=== PATIENT | male | born 1960 | race Two or more races ===

== ENCOUNTER → 2025-01-04 | Outpatient (CLI) | payer MEDICARE, MEDICAID, SELFPAY ==
[2025-01-04 08:11] LABS: Collection Type, Urine Clean Catch
[2025-01-04 08:44] LABS: Bilirubin,Urine Negative (Negative); Blood,Urine Negative (Negative); Clarity,Urine Clear (Clear/Hazy); Color,Urine Yellow (Lt Yel-Yel); Glucose, Urine Negative (Negative); Ketones,Urine Negative (Negative); Leukocyte Esterase,Urine Negative (Negative); Nitrite,Urine Negative (Negative); PH,Urine 5.5 (5.0-7.0); Protein,Urine Negative (Neg - Trace); RBC,Urine 2 /hpf (0-3); Specific Gravity,Urine 1.029 (1.001-1.035); Squamous Epithelial Cell,Urine < 1 /hpf (0-5); Urobilinogen,Urine Negative mg/dL (0.0-1.0); WBC,Urine 1 /hpf (0-5)
[2025-01-04 08:46] LABS: Glucose Estimated Average 123 mg/dL (80-131); Hemoglobin A1C 5.9 % Hgb (4.8-6.0)
[2025-01-04 09:02] LABS: Alanine Aminotransferase 46 U/L (10-49); Albumin, Serum 4.7 gm/dL (3.4-4.8); Albumin/Globulin Ratio 1.9 (1.2-2.2); Alkaline Phosphatase 83 U/L (46-116); Anion Gap 9 (7-16); Aspartate Amino Transferase 37 U/L (0-34); BUN/Creatinine Ratio 20 Ratio (12-20); Bilirubin,Total 1.0 mg/dL (0.3-1.2); Blood Urea Nitrogen 18 mg/dL (9-23); Calcium 9.6 mg/dL (8.3-10.6); Calcium (Corrected) 9.6 mg/dL (8.5-10.1); Carbon Dioxide 27.5 mMol/L (20.0-31.0); Cardiac Risk Estimate 3.3 RATIO (4.0-6.7); Chloride 103 mMol/L (98-107); Cholesterol 174 mg/dL (132-200); Creatinine (Component) 0.9 mg/dL (0.6-1.3); Free T4 (Free Thyroxine) 1.23 ng/dL (0.89-1.76); Globulin 2.5 gm/dL (2.3-3.5); Glucose 133 mg/dL (74-106); HDL Cholesterol 52 mg/dL (40-60); LDL Cholesterol,Calculated 92 mg/dL (0-130); Osmolality,Calculated 281 (275-295); Potassium 4.5 mMol/L (3.4-5.1); Sodium 139 mMol/L (136-145); Thyroid Stimulating Hormone 2.50 uIU/mL (0.55-4.78); Total Protein 7.2 gm/dL (5.7-8.2); Triglycerides 150 mg/dL (30-150); eGFR > 60 See Note
[2025-01-04 09:07] LABS: Creatinine MALB Rnd Ur 189 mg/dL (30-125); Microalbumin Creat Ratio 2 mg/gCrea (<30); Microalbumin, Random Urine 4 mg/L (0-300)
== END | disposition home or self-care (01) ==
LOC: COPL 06:42
PROVIDERS: PCP Nurse Practitioner Family; Referring Provider Nurse Practitioner Family; Visit Provider Nurse Practitioner Family
DX: C16.2 Malignant neoplasm of body of stomach (principal); I10 Essential (primary) hypertension; E78.2 Mixed hyperlipidemia; Z79.899 Other long term (current) drug therapy; Z71.2 Person consulting for explanation of examination or test findings
CPT/HCPCS: 36415; 80053; 80061; 81001; 82043; 82570; 83036; 84439; 84443

== ENCOUNTER 2025-01-16 10:42 | Emergency (ER) | payer MEDICARE, MEDICAID, SELFPAY ==
[2025-01-16 11:09] VITALS: BP 169/98; PULSE 67; RESP 18; TEMP 36.9; O2SAT 97; BMI 43.0
--- NOTE | 2025-01-16 11:10 | XR_ITS ---
Examination: CT abdomen and pelvis without contrast. Coronal 3-D reconstructions. Sagittal 2-D reconstructions. Date and time of exam: January 16, 2025, 12:17 p.m., comparison 12/29/2023 INDICATIONS: Lower abdominal pain today, history abdominal hernia surgery CTDI: vol (mGy): 11.5 DLP: (mGycm): 772 Technique: Axial images of the abdomen have been obtained, 3 mm slice thickness Intravenous contrast material has not been administered. Low dose protocols were performed. One or more of the following dose reduction techniques were used; automated exposure control, adjustment of the mA and/or KV according to patient size, use of iterative reconstruction technique. Findings: No focal liver or splenic lesions No abdominal parenchymal laceration No free blood in the abdomen Lumbar vertebral bodies sacral segments bones of the pelvis and hips appear intact No gallstones No pancreatic or adrenal mass No renal or ureteral calculi, no hydronephrosis Left abdominal wall hernia defect, 17 mm, containing fat Right lower abdominal wall hernia defect, 6 cm containing small bowel, no incarcerated bowel Localized weakening of the entire anterior wall of the pelvis which contains bowel but no incarcerated bowel Bladder intact No prostatomegaly Advanced disc narrowing posteriorly L5-S1 IMPRESSION: Hernia defects as above, 2 of the defects contain bowel but no incarcerated bowel or bowel obstruction Abdominal aorta intact, no free blood in the abdomen Osseous structures intact
--- NOTE | 2025-01-16 11:10 | XR_ITS ---
Examination: Knee bilateral, 6 views Technique: Knee AP, lateral, oblique each knee total 6 views Date and time of exam: January 16, 2025, 1112 hours INDICATIONS: Ground-level fall with injury to both knees today. FINDINGS: No acute fracture involving either knee, no dislocation Advanced tricompartment osteoarthritis right knee, moderate tricompartment osteoarthritis left knee IMPRESSION: No acute fracture involving either knee
--- NOTE | 2025-01-16 11:10 | PD.EDRME ---
Rapid Medical Screening Exam E Arrival date/time: 01/16/25 10:42 64-year-old male with recent abdominal surgery presents to the emergency room today stating a ground-level fall today patient reports that he tripped and fell patient reports bilateral knee pain and abdominal trauma Chief Complaint: Fall Vital signs: Vital Signs Temperature 98.5 F 01/16/25 11:09 Pulse Rate 67 01/16/25 11:09 Respiratory Rate 18 01/16/25 11:09 Blood Pressure 169/98 H 01/16/25 11:09 Pulse Oximetry (%) 97 01/16/25 11:09 Oxygen Delivery Method Room Air 01/16/25 11:09
--- NOTE | 2025-01-16 13:11 | PD.EDFALL ---
ED Fall Injury RME/HPI General Chief Complaint: Fall Stated Complaint: FALL, ANDOMEN AND B/L KNEE PAIN Time Seen by Provider: 01/16/25 13:11 Arrival date/time: 01/16/25 10:42 64-year-old male with recent abdominal surgery presents to the emergency room today stating a ground-level fall today patient reports that he tripped and fell patient reports bilateral knee pain and abdominal trauma Limitations: no limitations RME / HPI RME / HPI Narrative: 01/16/25 10:42 64-year-old male with recent abdominal surgery presents to the emergency room today stating a ground-level fall today patient reports that he tripped and fell patient reports bilateral knee pain and abdominal trauma Related Data Home Medications ?Medication ?Instructions ?Recorded ?Confirmed multivitamin 1 tab PO QAM 07/14/17 10/28/22 tamsulosin 0.4 mg capsule 0.4 mg PO QDAY 09/06/17 10/28/22 albuterol sulfate 90 mcg/actuation 2 puff inhalation Q6H PRN Wheezing 03/22/19 10/28/22 aerosol inhaler (ProAir HFA) citalopram 20 mg tablet 20 mg PO QDAY 03/22/19 10/28/22 gabapentin 300 mg capsule 300 mg PO TID 03/22/19 10/28/22 cyclobenzaprine 5 mg tablet 5 mg PO TID 03/06/20 10/28/22 Held on 10/28/22. Instructions: Resume on 10/29/22. ibuprofen 600 mg tablet 600 mg PO TID PRN Pain 03/06/20 10/28/22 lisinopril 40 mg tablet 40 mg PO DAILY 03/06/20 10/28/22 meloxicam 15 mg tablet 15 mg PO QDAY 03/06/20 10/28/22 ipratropium bromide 21 mcg (0.03 2 spray intranasal QDAY PRN Sinus 10/28/22 %) nasal spray Symptoms Previous Rx's ?Medication ?Instructions ?Recorded albuterol sulfate 90 mcg/actuation See Rx Instructions inhalation 05/01/19 aerosol inhaler .COMPLEX PRN wheezing / cough / shortness of breath #6.7 grams benzonatate 100 mg capsule See Rx Instructions .Route 05/01/19 (Sunil Mckeon) .COMPLEX cough #30 caps inhalational spacing device #1 ea 05/01/19 (Aerochamber MV spacer) hydrocodone 5 mg-acetaminophen 325 1 tab PO Q6H #20 tabs 08/28/22 mg tablet Held on 10/28/22. Instructions: Resume on 10/29/22. tramadol 50 mg tablet 50 mg PO BID PRN pain #7 tabs 01/16/25 Allergies Allergy/AdvReac Type Severity Reaction Status Date / Time No Known Allergies Allergy Verified 01/16/25 10:46 Review of Systems Review of Systems Systems Reviewed: All systems reviewed, normal except as documented Constitutional Constitutional: Reports system reviewed and no additional complaints, except as documented, Denies fever(s) and Denies headache(s) Eyes Eyes: Reports system reviewed and no additional complaints, except as documented and Denies blurry vision ENT Ears, Nose, Mouth, and Throat: Reports system reviewed and no additional complaints, except as documented, Denies headache(s), Denies nasal congestion and Denies nasal discharge Cardiovascular Cardiovascular: Reports system reviewed and no additional complaints, except as documented, Denies chest pain and Denies dyspnea Respiratory Respiratory: Reports system reviewed and no additional complaints, except as documented, Denies chest congestion, Denies cough and Denies dyspnea Gastrointestinal Gastrointestinal: Reports system reviewed and no additional complaints, except as documented and Denies abdominal pain Musculoskeletal Musculoskeletal: Reports system reviewed and no additional complaints, except as documented and Reports arthralgias (Bilateral knee pain) Integumentary/Breasts Skin/Breast: Reports system reviewed and no additional complaints, except as documented, Denies rash and Reports wounds (Pain lower abdomen, bilateral knee pain) Neurologic Neurologic: Reports system reviewed and no additional complaints, except as documented, Reports as per HPI and Denies headache(s) Past Medical History Past Medical History NEUROLOGIC: Negative Neurological Disorders or Seizures CARDIAC: Positive Cardiac Disorders, Hypercholesterolemia and Hypertension; Negative Congestive Heart Failure RESPIRATORY: Positive Asthma; Negative Chronic Obstructive Pulmonary Disease (COPD) or Pneumonia GASTROINTESTINAL: Positive Gastrointestinal Disorders and Obesity GENITOURINARY: Positive Genitourinary Disorders, Renal Disease (kidney cancer) and Kidney Stones MUSCULOSKELETAL: Positive Musculoskeletal Disorders, Arthritis and Fractures ENDOCRINE: Negative Endocrine Disorders, Diabetes Mellitus Type 1 or Diabetes Mellitus Type 2 HEMATOLOGIC: Negative Blood Disorders or Sickle Cell Disease OTHER HISTORY: Positive Hospitalization (3.5 months ago for hernia repair), MRSA, Cancer (kidney cancer, lung cancer) and Lung Cancer; Negative Autoimmune Disease, Shingles, Falls, Blood Transfusions, Blood Transfusion Reaction, Anesthesia Reactions, Chemotherapy, Radiation Therapy, Chicken Pox, Measles or Mumps Family History FAMILY HISTORY: Positive Family Cardiac Disorders, Family Gastrointestinal Problems, Family Cancer (brother colon and liver cancer, father unknown cancer) and Family Surgery; Negative Family Psychiatric Problems, Family Respiratory Disorders or Family Anesthesia Reaction Surgical History SURGICAL: Positive Abdominal Surgery, Gastric Bypass Surgery and Nephrectomy (25% of left kidney removede); Negative Cardiac Surgery Social History SMOKING STATUS: Never smoker ED Exam General Limitations: Present no limitations General appearance: Present alert and in no apparent distress Head Head exam: Present atraumatic, normocephalic and normal inspection Eye Eye exam: Present normal appearance, PERRL and EOMI; Absent conjunctival injection ENT ENT exam: Present normal exam, normal oropharynx and mucous membranes moist Neck Neck exam: Present normal inspection, full ROM and trachea midline Chest Chest inspection: Present normal inspection and symmetric chest wall rise Respiratory Respiratory exam: Present normal lung sounds bilaterally Cardiovascular Cardiovascular exam: Present regular rate, normal rhythm and normal heart sounds Abdominal Exam Abdominal exam: Present soft, normal bowel sounds and other (Sutures in case abdomen); Absent distention, tenderness, guarding, rebound or rigidity Extremities Exam Extremities exam: Present normal inspection, full ROM, tenderness, normal capillary refill and joint swelling (Joint pain bilateral knees) Back Exam Back exam: Present normal inspection and full ROM Neurological Exam Neurological exam: Present alert, oriented X3 and CN II-XII intact Psychiatric Psychiatric exam: Present normal affect and normal mood Skin Skin exam: Present warm, dry and other (Sutures in place abdomen) Course Quality Measures none Orders Category Date Time Status jermain wrap [Splint / Immobilizer] STAT Care 01/16/25 13:[address] abdomen pelvis wo con Stat Exams 01/16/25 11:10 Completed XR knee BI 3V Stat Exams 01/16/25 11:10 Completed Vital Signs Vital signs: Vital Signs Temperature 98.5 F 01/16/25 11:09 Pulse Rate 67 01/16/25 11:09 Respiratory Rate 18 01/16/25 11:09 Blood Pressure 169/98 H 01/16/25 11:09 Pulse Oximetry (%) 97 01/16/25 11:09 Oxygen Delivery Method Room Air 01/16/25 11:09 O2 saturation 97% room air within normal limits Fall MDM Narrative MDM Narrative:: 64-year-old male with recent abdominal surgery presents to the emergency room today stating a ground-level fall today patient reports that he tripped and fell patient reports bilateral knee pain and abdominal trauma On exam patient well-appearing patient does not appear look toxic no acute distress Imaging of the abdomen obtained no acute emergent findings noted X-ray of bilateral knees obtained no acute fractures noted Jermain wrap applied to the right knee Patient discharged with pain medication Patient reports he has a follow-up with the cancer treatment center at this time and will go to the appointment Patient thankful for care Patient discharged home in no distress to follow-up with primary care doctor in the next 24 to 48 hours and for any worsening symptoms to return to the ER immediately Patient data External records reviewed:: [facility] previous records Clinical information provided by:: patient Social determinants that could affect healthcare access:: none Patient has the following chronic illnesses:: None How is presenting disease/condition affected by chronic disease/condition?: exacerbated by Evaluation data The following diagnostics were reviewed and interpreted by me:: radiology exam(s) Lab and/or radiology exams considered but not ordered:: Radiology obtained Interpretation Summary: Rx given Medications / Prescriptions Medications or Prescriptions considered but not ordered:: Rx given Medication administrations:: Given Consultations Consultation(s) initiated? (list below): No Diagnosis Fall Differential Diagnosis: other (Trip and fall, abdominal wall pain, abrasions bilateral knees, knee pain) Most likely diagnosis given after review of the tests above:: Reviewed by me Admission Indicated Admission indicated?: not indicated Admission Request Was there a request for admission?: No Disposition Plan Disposition Plan: Discharge Discharge Attestation Discharge Attestation: The patient and all family members were given an opportunity to ask questions and understood the discharge instructions. Discharge instructions specifically effects, indications for sooner follow up or return to the emergency department, and the expected course of current diagnosis. Patient condition: Stable Discharge Plan Plan Patient Disposition: HOME (Self Care) Discharge Disposition comment: Stable Prescriptions/Referrals Prescriptions/Med Rec: New tramadol 50 mg tablet 50 mg PO BID PRN (Reason: pain) Qty: 7 0RF No Action tamsulosin 0.4 mg capsule,extended release 24hr 0.4 mg PO QDAY multivitamin tablet 1 tab PO QAM (DME) Aerochamber MV spacer See Dose Instructions .ROUTE .MEDSUPPLY Qty: 1 0RF Dose Instruction: As directed Rx Instructions: As directed albuterol sulfate 90 mcg/actuation HFA aerosol inhaler See Rx Instructions INH .COMPLEX PRN (Reason: wheezing / cough / shortness of breath) Qty: 6.7 0RF Rx Instructions: INH PRN; 1-2 puffs Q4-6 hours prn. administer with spacer benzonatate [Tessalon Perles] 100 mg capsule See Rx Instructions .Route .COMPLEX Qty: 30 0RF Rx Instructions: 1-2 cap(s) PO Q8 hours prn cough gabapentin 300 mg Capsule 300 mg PO TID citalopram 20 mg Tablet 20 mg PO QDAY albuterol sulfate [ProAir HFA] 90 mcg/actuation Hfa Aerosol Inhaler 2 puff INHALATION Q6H PRN (Reason: Wheezing) meloxicam 15 mg Tablet 15 mg PO QDAY ibuprofen 600 mg Tablet 600 mg PO TID PRN (Reason: Pain) lisinopril 40 mg Tablet 40 mg PO DAILY cyclobenzaprine 5 mg Tablet 5 mg PO TID hydrocodone-acetaminophen 5-325 mg tablet 1 tab PO Q6H MDD 4 Qty: 20 0RF ipratropium bromide 0.03 % spray,non-aerosol 2 spray intranasal QDAY PRN (Reason: Sinus Symptoms) Referrals: Chantal García TRAFFIC ASSISTANT [Primary Care Provider] - In 1 week Problem List Clinical Impression: Abdominal wall pain, Acute bilateral knee pain, Fall Patient/Caregiver Discharge Instructions Education Materials: Abdominal Pain Additional Instructions: Please follow up with your primary care doctor in the next 24-48hrs for any worsening symptoms return here immediately Print Language: Mosotho Stand Alone Forms: Radha Award Info., Patient Portal Info Letter PA/MEAT MARKET MANAGER Supervising Physician PA/MEAT MARKET MANAGER Supervising Physician: Dr. edwards
== END 2025-01-16 13:17 | disposition home or self-care (01) ==
PROVIDERS: Emergency Provider Emergency Medicine; PCP Nurse Practitioner Family
DX: M25.562 Pain in left knee (principal); M25.561 Pain in right knee; R10.9 Unspecified abdominal pain
CPT/HCPCS: 73562; 74176; 99284

== ENCOUNTER 2025-01-16 13:34 | Outpatient (RCR) | payer MEDICARE, MEDICAID, SELFPAY ==
--- NOTE | 2025-01-16 14:52 | CTCFLWUP_ITS ---
[facility] [address] [place], [place] [address] FOLLOW-UP NOTE Date: 01/16/2025 MR#: [id number] Name: SELMA MUNOZ : 1960 Dx: C64.2 Malignant neoplasm of left kidney, except renal pelvis Identification. 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 Patient underwent left upper pole heminephrectomy at [facility] performed by Dr. Luis July 03, 2017. Margins uninvolved and no adjuvant therapy was felt to be needed and received. Over the years patient has a chronic pain with imaging study showing significant bone damage thought to be degenerative disease or other benign causes of stenosis and degenerative changes.. Also dealing with chronic pain as well as incarcerated recurrent incisional hernia for which he has had recurrent incisional hernia with multiple surgeries. Patient was recently being followed in [place] which reportedly revealed a 6 mm lung nodule left lower lobe. No recent test had been done. According to patient. As Isee patient today he appears generally uncomfortable. Dealing with constipation issues chronic pain and fear of cancer recurrence. A#1. History of renal cell CA stage I clear-cell status post left heminephrectomy performed 2018 at [facility]. A#2. Thus far no sign of recurrence though small left lung nodule reportedly seen with imaging studies done in [place] in the past. Will repeat CT scan of the chest before next visit. A#3. Incarcerated recurrent incisional hernia, multiple prior surgeries being followed by general surgeon in [place]. A#4. Chronic constipation bowel irregularities, along with generalized pain. Primary care provider providing meds. A#5. I will see him back for follow-up in [address] scan of the chest with contrast. Cc: Chantal García NP Electronically signed by: Sorin Govea M.D. 01/16/2025 2:49 PM
== END 2025-02-01 23:59 | disposition home or self-care (01) ==
LOC: SCTC 13:34
PROVIDERS: PCP Nurse Practitioner Family; Referring Provider Nurse Practitioner Family; Visit Provider Radiology Therapeutic Radiology
DX: Z08 Encounter for follow-up examination after completed treatment for malignant neoplasm (principal); Z85.528 Personal history of other malignant neoplasm of kidney; Z90.5 Acquired absence of kidney; R91.1 Solitary pulmonary nodule; K43.0 Incisional hernia with obstruction, without gangrene; K59.09 Other constipation
CPT/HCPCS: 99213; G0463

== ENCOUNTER → 2025-02-19 | Outpatient (CLI) | payer MEDICARE, MEDICAID, SELFPAY ==
[2025-02-19 11:11] LABS: Alanine Aminotransferase 36 U/L (10-49); Albumin, Serum 4.9 gm/dL (3.4-4.8); Albumin/Globulin Ratio 2.3 (1.2-2.2); Alkaline Phosphatase 77 U/L (46-116); Anion Gap 9 (7-16); Aspartate Amino Transferase 30 U/L (0-34); BUN/Creatinine Ratio 16 Ratio (12-20); Bilirubin,Total 0.8 mg/dL (0.3-1.2); Blood Urea Nitrogen 16 mg/dL (9-23); Calcium 9.4 mg/dL (8.3-10.6); Calcium (Corrected) 9.4 mg/dL (8.5-10.1); Carbon Dioxide 28.7 mMol/L (20.0-31.0); Chloride 103 mMol/L (98-107); Creatinine (Component) 1.0 mg/dL (0.6-1.3); Globulin 2.1 gm/dL (2.3-3.5); Glucose 134 mg/dL (74-106); Osmolality,Calculated 284 (275-295); Potassium 4.6 mMol/L (3.4-5.1); Sodium 141 mMol/L (136-145); Total Protein 7.0 gm/dL (5.7-8.2); eGFR > 60 See Note
[2025-02-19 11:18] LABS: Basophils # (Auto) 0.0 Thou/mm3 (0.0-0.2); Basophils % (Auto) 1 % (0-2.5); Eosinophils # (Auto) 0.2 Thou/mm3 (0.0-0.5); Eosinophils % (Auto) 3 % (0-10); Hematocrit 41.1 % (41.0-53.0); Hemoglobin 13.8 g/dL (13.5-16.0); Immature Granulocytes Auto 0.03 Thou/mm3 (0.00-0.00); Lymphocytes # (Auto) 3.1 Thou/mm3 (1.0-4.8); Lymphocytes % (Auto) 46 % (10-50); Mean Corpuscular HGB Conc 33.6 g/dl (31.0-37.0); Mean Corpuscular Hemoglobin 31.6 pg (25.0-35.0); Mean Corpuscular Volume 94 fL (80-100); Monocytes # (Auto) 0.4 Thou/mm3 (0.0-0.8); Monocytes % (Auto) 7 % (0-12); Neutrophils # (Auto) 2.9 Thou/mm3 (1.8-7.7); Neutrophils % (Auto) 43 % (37-80); Nucleated Red Blood Cell # 0.00 Thou/mm3 (0.00-0.00); Nucleated Red Blood Cell % 0 /100 WBC (0); Platelet Count 243 Thou/mm3 (140-440); RDW Standard Deviation 43.3 fL (35.1-43.9); Red Blood Count 4.37 Miln/mm3 (4.50-5.90); White Blood Count 6.7 Thou/mm3 (3.8-10.6)
== END | disposition home or self-care (01) ==
LOC: SCTO 09:25
PROVIDERS: PCP Nurse Practitioner Family; Referring Provider Radiology Therapeutic Radiology; Visit Provider Radiology Therapeutic Radiology
DX: C64.2 Malignant neoplasm of left kidney, except renal pelvis (principal)
CPT/HCPCS: 36415; 80053; 85025

== ENCOUNTER → 2025-02-20 | Outpatient (CLI) | payer MEDICARE, MEDICAID, SELFPAY ==
--- NOTE | 2025-02-20 15:00 | XR_ITS ---
Examination: CT chest with intravenous contrast 2-D sagittal and coronal reconstructions Exam date and time: February 20, 2025, 1457 hours INDICATIONS: Diagnosis iron deficiency anemia, 6 mm pulmonary nodule left lower lobe on CT chest July 07, 2022 CTDI:vol (mGy) 23.9 DLP: (mGycm) 955 Technique: Multiple axial sections of the thorax have been obtained. Sections have been obtained, 3 mm slice thickness. Mediastinal and lung density settings have been obtained. Intravenous contrast administered, 60 cc [id number]-370. 2-D sagittal, coronal images obtained. Low dose protocols were performed. One or more of the following dose reduction techniques were used; automated exposure control, adjustment of the mA and/or KV according to patient size, use of iterative reconstruction technique. Findings: No thoracic aortic aneurysm dilatation or dissection No pulmonary artery filling defects Heavy calcification left anterior descending coronary artery No paratracheal tracheobronchial or bronchopulmonary adenopathy Nodule in the left lower lobe currently measures 9 mm compared to 6 mm on the prior study No visualized liver or splenic lesion no gallstones Partial left nephrectomy IMPRESSION: Enlarging nodule left lower lobe, recommend continued 6-month follow-up CT chest without contrast
== END | disposition home or self-care (01) ==
PROVIDERS: PCP Nurse Practitioner Family; Referring Provider Radiology Therapeutic Radiology; Visit Provider Radiology Therapeutic Radiology
DX: R91.1 Solitary pulmonary nodule (principal); C64.2 Malignant neoplasm of left kidney, except renal pelvis
CPT/HCPCS: 71260; A4649; Q9967

== ENCOUNTER 2025-02-22 07:52 | Outpatient (AMB) | payer MEDICARE, MEDICAID, SELFPAY ==
--- NOTE | 2025-02-22 08:11 | ORTHONT_ITS ---
Vital signs 02/22/25 08:12 Height 1.7 m Height Method Measured Weight 114.986 kg Weight Measurement Method Standing Scale BMI 39.7 BP 169/95 H Blood Pressure Source Automatic Cuff Blood Pressure Location Left Upper Arm Position Sitting Respiration 18 Pulse 80 Pulse Source Monitor Temp 98.3 F Temp Source Temporal Artery Scan Pulse Oximetry (%) 96 Oxygen Delivery Method Room Air Med/Allergies Allergies & Medications Allergies No Known Allergies Allergy (Verified 02/22/25 08:13) Medication Reconciliation multivitamin 1 tab PO QAM 07/14/17 [History Confirmed 02/22/25] tamsulosin 0.4 mg capsule 0.4 mg PO QDAY 09/06/17 [History Confirmed 02/22/25] albuterol sulfate 90 mcg/actuation aerosol inhaler (ProAir HFA) 2 puff inhalation Q6H PRN Wheezing 03/22/19 [History Confirmed 02/22/25] citalopram 20 mg tablet 20 mg PO QDAY 03/22/19 [History Confirmed 02/22/25] gabapentin 300 mg capsule 300 mg PO TID 03/22/19 [History Confirmed 02/22/25] albuterol sulfate 90 mcg/actuation aerosol inhaler See Rx Instructions inhalation .COMPLEX PRN wheezing / cough / shortness of breath #6.7 grams 05/01/19 [Rx Confirmed 02/22/25] benzonatate 100 mg capsule (Tessalon Mike) See Rx Instructions .Route .COMPLEX cough #30 caps 05/01/19 [Rx Confirmed 02/22/25] inhalational spacing device (Aerochamber MV spacer) #1 ea 05/01/19 [Rx Confirmed 02/22/25] cyclobenzaprine 5 mg tablet 5 mg PO TID 03/06/20 [History Confirmed 02/22/25] Held on 10/28/22. Instructions: Resume on 10/29/22. ibuprofen 600 mg tablet 600 mg PO TID PRN Pain 03/06/20 [History Confirmed 02/22/25] lisinopril 40 mg tablet 40 mg PO DAILY 03/06/20 [History Confirmed 02/22/25] meloxicam 15 mg tablet 15 mg PO QDAY 03/06/20 [History Confirmed 02/22/25] hydrocodone 5 mg-acetaminophen 325 mg tablet 1 tab PO Q6H #20 tabs 08/28/22 [Rx Confirmed 02/22/25] Held on 10/28/22. Instructions: Resume on 10/29/22. ipratropium bromide 21 mcg (0.03 %) nasal spray 2 spray intranasal QDAY PRN Sinus Symptoms 10/28/22 [History Confirmed 02/22/25] tramadol 50 mg tablet 50 mg PO BID PRN pain #7 tabs 01/16/25 [Rx Confirmed 02/22/25] Exam Exam Patient is in no acute distress and is cooperative with the examination today. Breathing is nonlabored. In no respiratory distress. Bilateral extremities were evaluated and demonstrates sensation intact to light touch. Palpable pedal pu lses are present. No significant edema is present. Bilateral hips were examined. The patient has no pain with log roll of the hips. Internal rotation to 30 degrees and external rotation to 30 degrees is painless. Negative FADIR. The left knee was examined. The left knee is in varus alignment. Range of motion from 0-115 degrees. Knee is stable to varus and valgus as well as AP translation with <5mm. Patient has a negative McMurrays. There is no pain with patellofemoral compression and no crepitus noted. The knee is tender to palpation medially. The right knee was also examined. The right knee is in varus alignment. Range of motion from 0-120 degrees. Knee is stable to varus and valgus as well as AP translation with <5mm. Patient has a negative McMurrays. There is no pain with patellofemoral compression and no crepitus noted. The knee is tender to palpation medially. Right knee x-rays demonstrates ojmp-[id number] arthritis. There are nonweightbearing films. There is joint space narrowing laterally and osteophytes Assessment and Plan Problem List (1) Acute bilateral knee pain: Status: Acute Plan: ASSESSMENT AND PLAN 1. Bilateral knee pain: The patient reports bilateral knee pain, with the right knee being worse, which started about a month and a half ago after a fall. He has had two arthroscopic surgeries and one open surgery on the right knee in 1985. The pain is severe and associated with swelling. He is currently taking codeine for pain management. A standing x-ray of both knees will be conducted today to assess the extent of the damage. A standing x-ray of both knees will be performed today. Depending on the x-ray results, treatment may include injections and anti-inflammatory medications. Approval for the injections will be sought from his insurance provider during the next visit. If these interventions are ineffective, surgical intervention may be necessary. (2) Arthritis of knee, right: Status: Acute Office Procedures GNS Level of Care Nursing/Assessment Patient Status: Initial/New Patient Nursing Assessment/Reassesment: Medication Reconciliation, Update PMH in EMR and Vital Signs Coordination of Care: Complex Care and Chronic Disease 1-5, Education Complex Pt/Fam, Consent,records obtained, informed consent, Lab and Imaging orders, Results/Orders obtained and Staff clarify orders New Patient Charge New Patient Point Assignment: 1109 New Patient Point Charge: STAFFING ANALYST Level 3 ([id number]) MA Intake Visit Data Collection New Patient or Established: New Patient (never been to [facility]) Reason for Visit:: BILATERAL KNEE PAIN Seen by Clinical Staff ONLY (RN/MA): No Granite Worker Required: No PCP or OBGYN visit in last 3 months: Yes Hx Now: No Do You Feel Safe at Home: Yes Authorities Contacted: N/A Questionairres Past Medical History Past Medical History Have you ever been diagnosed with any of the following: Neurological Problems Seizures: No Cardiology Problems Hypercholesterolemia: Yes Congestive Heart Failure: No Hypertension: Yes Respiratory Problems Chronic Obstructive Pulmonary Disease (COPD): No Asthma: Yes Pneumonia: No Stomache/Intestinal Problems Obesity: Yes Genital/Urinary Problems Renal Disease: Yes (kidney cancer) Kidney Stones: Yes Musculoskeletal Problems Arthritis: Yes Fractures: Yes Endocrine Problems Diabetes Mellitus Type 1: No Diabetes Mellitus Type 2: No Blood Problems Sickle Cell Disease: No Other Problems Hospitalization: Yes (3.5 months ago for hernia repair) Shingles: No Falls: No Blood Transfusions: No Blood Transfusion Reaction: No Anesthesia Reactions: No Chemotherapy: No Radiation Therapy: No MRSA: Yes Chicken Pox: No Measles: No Mumps: No Cancer: Yes (kidney cancer, lung cancer) Lung Cancer: Yes Subjective Visit Visit for: new patient and knee Immunization / Flu Flu Vaccine in the Last 12 Months: Yes Flu Vaccine Exclusion Criteria: Already Received History of Present Illness Chief complaint: BILATERAL KNEE PAIN Date of injury / onset of symptoms: 1 MONTH HISTORY OF PRESENT ILLNESS Reid James, have obtained verbal consent from the patient, to be recorded during this encounter which may include, but not limited to, medical history, examination, treatment plans, and relevant health information.? Patient was informed that recording will be read and reviewed by myself before inclusion in the medical chart. The patient presents today with bilateral knee pain, worse in the right knee, which started about a month and a half ago following a fall. He states the most recent x-rays were completed here at [facility]. He has had one prior right knee surgery. He has not tried injections, physical therapy, or anti-inflammatory medications but is currently taking a pain medication. He reports that the pain in his left knee has subsided, but he experiences swelling and pain in his right knee. He describes the pain as being located internally and at the corner of the knee. He has undergone two surgeries on his right knee, with the most recent one involving a full incision in 1985. During this procedure, a wire was inserted into his knee, which was later removed. He recalls an incident where he tripped over a mat with rolled towels underneath it while paying his electric bill, causing him to fall and injure his knee. He also mentions a previous hernia surgery and expresses concern about potential damage to his stomach during the fall. He reports experiencing tenderness in his knee, which he did not previously have. He is currently taking codeine for pain management. He reports that his knee pain has been present for more than a month and a half but has significantly worsened in the past month and a half. He used to be able to walk at the mall, but now he needs to sit down after walking short distances due to the pain. He lives alone at home. PAST SURGICAL HISTORY: Right knee surgery (1985) Hernia surgery (date not specified) Personal History Occupation: RETIRED Red flag PMH: none BMI Counceling provided: Yes Pain Pain level (0-10): 8 Pain location: inside (medial) Pain quality: aching, burning and tingling Pain timing: increases with activity and stairs Associated signs & symptoms: weakness Ambulatory data Ambulatory device: none Walking distance (minutes): 5 Treatments Number of previous injections: 0 Improvement with previous injections: No Number of Physical Therapy sessions: 0 Improvement with PT: No Improvement with NSAIDS: no Review of Systems Review of Systems: All systems negative unless otherwise noted in HPI.
[2025-02-22 08:12] VITALS: BP 169/95; PULSE 80; RESP 18; TEMP 36.8; O2SAT 96; BMI 39.7
--- NOTE | 2025-02-22 08:18 | XR_ITS ---
EXAMINATION: Bilateral knees 2 views Right lateral knee left lateral knee 2 views Bilateral axial knee single view TECHNIQUE: Bilateral AP knees standing single view, bilateral PA knees standing single view flexion Standing right lateral knee left lateral knee 2 views Bilateral axial knee single view total 5 views Date and time: February 22, 2025, 0830 hours INDICATIONS: Right knee surgery times 05/23/1985, patient slipped and fell 6 weeks ago with knee pain FINDINGS: Severe narrowing medial lateral joint spaces right knee Advanced osteoarthritis right patellofemoral joint 18 mm ossified body posterior right knee Moderate to advanced narrowing medial joint space left knee Moderate osteoarthritis left patellofemoral joint IMPRESSION: Severe right knee tricompartment osteoarthritis
== END 2025-02-22 08:29 | disposition home or self-care (01) ==
LOC: HODSRG 07:52
PROVIDERS: PCP Nurse Practitioner Family; Referring Provider Nurse Practitioner Family; Supervising Provider Orthopaedic Surgery Adult Reconstructive Orthopaedic Surgery; Visit Provider Orthopaedic Surgery Adult Reconstructive Orthopaedic Surgery
DX: M25.562 Pain in left knee (principal); M25.561 Pain in right knee; M17.11 Unilateral primary osteoarthritis, right knee; I10 Essential (primary) hypertension; E66.9 Obesity, unspecified; Z68.39 Body mass index [BMI] 39.0-39.9, adult
CPT/HCPCS: 73564; 99203; G0463

== ENCOUNTER 2025-03-12 13:54 | Outpatient (AMB) | payer MEDICARE, MEDICAID, SELFPAY ==
--- NOTE | 2025-03-12 14:18 | ORTHONT_ITS ---
Vital signs 03/12/25 14:19 Height 1.7 m Height Method Measured Weight 116.148 kg Weight Measurement Method Standing Scale BMI 40.1 BP 120/78 Blood Pressure Source Automatic Cuff Blood Pressure Location Left Upper Arm Position Sitting Respiration 18 Pulse 73 Pulse Source Monitor Temp 97.7 F Temp Source Temporal Artery Scan Pulse Oximetry (%) 98 Oxygen Delivery Method Room Air Med/Allergies Allergies & Medications Allergies No Known Allergies Allergy (Verified 03/12/25 14:20) Medication Reconciliation multivitamin 1 tab PO QAM 07/14/17 [History Confirmed 03/12/25] tamsulosin 0.4 mg capsule 0.4 mg PO QDAY 09/06/17 [History Confirmed 03/12/25] albuterol sulfate 90 mcg/actuation aerosol inhaler (ProAir HFA) 2 puff inhalation Q6H PRN Wheezing 03/22/19 [History Confirmed 03/12/25] citalopram 20 mg tablet 20 mg PO QDAY 03/22/19 [History Confirmed 03/12/25] gabapentin 300 mg capsule 300 mg PO TID 03/22/19 [History Confirmed 03/12/25] albuterol sulfate 90 mcg/actuation aerosol inhaler See Rx Instructions inhalation .COMPLEX PRN wheezing / cough / shortness of breath #6.7 grams 05/01/19 [Rx Confirmed 03/12/25] benzonatate 100 mg capsule (Tessalon Mike) See Rx Instructions .Route .COMPLEX cough #30 caps 05/01/19 [Rx Confirmed 03/12/25] inhalational spacing device (Aerochamber MV spacer) #1 ea 05/01/19 [Rx Confirmed 03/12/25] cyclobenzaprine 5 mg tablet 5 mg PO TID 03/06/20 [History Confirmed 03/12/25] Held on 10/28/22. Instructions: Resume on 10/29/22. ibuprofen 600 mg tablet 600 mg PO TID PRN Pain 03/06/20 [History Confirmed 03/12/25] lisinopril 40 mg tablet 40 mg PO DAILY 03/06/20 [History Confirmed 03/12/25] meloxicam 15 mg tablet 15 mg PO QDAY 03/06/20 [History Confirmed 03/12/25] hydrocodone 5 mg-acetaminophen 325 mg tablet 1 tab PO Q6H #20 tabs 08/28/22 [Rx Confirmed 03/12/25] Held on 10/28/22. Instructions: Resume on 10/29/22. ipratropium bromide 21 mcg (0.03 %) nasal spray 2 spray intranasal QDAY PRN Sinus Symptoms 10/28/22 [History Confirmed 03/12/25] tramadol 50 mg tablet 50 mg PO BID PRN pain #7 tabs 01/16/25 [Rx Confirmed 03/12/25] Exam Exam Patient is in no acute distress and is cooperative with the examination today. Breathing is nonlabored. In no respiratory distress. Bilateral extremities were evaluated and demonstrates sensation intact to light touch. Palpable pedal puls es are present. No significant edema is present. Bilateral hips were examined. The patient has no pain with log roll of the hips. Internal rotation to 30 degrees and external rotation to 30 degrees is painless. Negative FADIR. The left knee was examined. The left knee is in varus alignment. Range of motion from 0-115 degrees. Knee is stable to varus and valgus as well as AP translation with <5mm. Patient has a negative McMurrays. There is no pain with patellofemoral compression and no crepitus noted. The knee is tender to palpation medially. The right knee was also examined. The right knee is in varus alignment. Range of motion from 0-120 degrees. Knee is stable to varus and valgus as well as AP translation with <5mm. Patient has a negative McMurrays. There is no pain with patellofemoral compression and no crepitus noted. The knee is tender to palpation medially. Right knee x-rays demonstrates [id number] arthritis. There is joint space narrowing laterally and osteophytes Assessment and Plan Problem List (1) Acute bilateral knee pain: Status: Acute Plan: ASSESSMENT AND PLAN 1. Bilateral knee pain: The patient reports bilateral knee pain, with the right knee being worse, which started about a month and a half ago after a fall. He has had two arthroscopic surgeries and one open surgery on the right knee in 1985. The pain is severe and associated with swelling. He is currently taking codeine for pain management. The x-rays demonstrate ljhx-na-nque arthritis of the right knee. He has failed conservative treatment and the pain is miserable. He has tried anti- inflammatories. We discussed injections as well as physical therapy versus surgery. Given the severity of the arthritis I do think that a total knee replacement is a reasonable option for the right side The nature and purpose of the total knee replacement, alternative method(s) of treatment, the material risks involved, and the possibility of complications were fully explained to the patient. The patient does NOT have any of the following contraindications to TKA: - Active infection of the knee joint, OR - Active systemic bacteremia, OR - Active skin infection or open wound at surgical site, OR - Neuropathic arthritis, OR - Severe, rapidly progressive neurological disease, OR - Severe medical condition that makes risks of surgery outweigh the potential benefit The patient was told the most common risks and complications associated with a total knee replacement include, but are not limited to: blood clots in the leg, fatal pulmonary embolism, dislocation of the prosthesis, intraoperative and postoperative fractures of the femur or tibia, infection, failure of the prosthesis or grafting materials, complications from anesthesia, reactions to blood transfusions, postoperative leg length inequality, instability of the knee replacement, nerve damage or injury, vascular injury, delayed wound healing, infection, other injury or even . In addition, there are risks associated with anesthesia given during this operation. Also, the patient was told that after undergoing a total knee replacement there may still be persistent pain or disability. The patient was informed that the success of this operation in part depends upon the mechanical devices which are going to be implanted and that these devices can fail or malfunction, and may need to be repaired or replaced and there are no guarantees as to the longevity of this device or its parts and that it or its parts could fail prematurely. The patient was also notified that during the course of surgery, there may be a need to use bone graft from donors, and that any bone graft used will be carefully screened for communicable diseases, including AIDS, hepatitis, Zen-Creutzfeldt, or other diseases, but despite the screening procedures, there is a small chance that they could contract one of these diseases. Finally, the patient was asked to follow completely and fully with all advice and recommended treatments, and that recovery and ultimate outcome are affected by their compliance with recommended treatment. We discussed the risks, benefits and treatment alternatives, and the patient is interested in proceeding with surgery. We will try to set this up as expeditiously as possible. (2) Arthritis of knee, right: Status: Acute Office Procedures GNS Level of Care Nursing/Assessment Patient Status: Established Patient Nursing Assessment/Reassesment: Medication Reconciliation, Update PMH in EMR and Vital Signs Coordination of Care: Complex Care and Chronic Disease 1-5, Education Complex Pt/Fam, Consent,records obtained, informed consent, Results/Orders obtained and Staff clarify orders Established Patient Charge Established Patient Point Assignment: 95 Established Patient Point Charge: EP Level 3 (80-115) MA Intake Visit Data Collection New Patient or Established: Established Patient (seen at [facility] within 3 years) Reason for Visit:: XRAY RESULTS/POSSIBLE INJECTION Seen by Clinical Staff ONLY (RN/MA): No Scrub Nurse Required: No PCP or OBGYN visit in last 3 months: Yes Hx Now: No Do You Feel Safe at Home: Yes Authorities Contacted: N/A Questionairres Past Medical History Past Medical History Have you ever been diagnosed with any of the following: Neurological Problems Seizures: No Cardiology Problems Hypercholesterolemia: Yes Congestive Heart Failure: No Hypertension: Yes Respiratory Problems Chronic Obstructive Pulmonary Disease (COPD): No Asthma: Yes Pneumonia: No Stomache/Intestinal Problems Obesity: Yes Genital/Urinary Problems Renal Disease: Yes (kidney cancer) Kidney Stones: Yes Musculoskeletal Problems Arthritis: Yes Fractures: Yes Endocrine Problems Diabetes Mellitus Type 1: No Diabetes Mellitus Type 2: No Blood Problems Sickle Cell Disease: No Other Problems Hospitalization: Yes (3.5 months ago for hernia repair) Shingles: No Falls: No Blood Transfusions: No Blood Transfusion Reaction: No Anesthesia Reactions: No Chemotherapy: No Radiation Therapy: No MRSA: Yes Chicken Pox: No Measles: No Mumps: No Cancer: Yes (kidney cancer, lung cancer) Lung Cancer: Yes Subjective Visit Visit for: follow up visit and knee Immunization / Flu Flu Vaccine in the Last 12 Months: Yes Flu Vaccine Exclusion Criteria: Already Received History of Present Illness Chief complaint: XRAY RESULTS/POSSIBLE INJECTION Date of injury / onset of symptoms: 1 MONTH HISTORY OF PRESENT ILLNESS IReid, have obtained verbal consent from the patient, to be recorded during this encounter which may include, but not limited to, medical history, examination, treatment plans, and relevant health information.? Patient was informed that recording will be read and reviewed by myself before inclusion in the medical chart. The patient presents today with bilateral knee pain, worse in the right knee, wh ich started about a month and a half ago following a fall. He has had one prior right knee surgery. He has not tried injections, physical therapy, or anti-inflammatory medications but is currently taking a pain medication. He reports that the pain in his left knee has subsided, but he experiences swelling and pain in his right knee. He describes the pain as being located internally and at the corner of the knee. He has undergone two surgeries on his right knee, with the most recent one involving a full incision in 1985. During this procedure, a wire was inserted into his knee, which was later removed. He recalls an incident where he tripped over a mat with rolled towels underneath it while paying his electric bill, causing him to fall and injure his knee. He also mentions a previous hernia surgery and expresses concern about potential damage to his stomach during the fall. He reports experiencing tenderness in his knee, which he did not previously have. He is currently taking codeine for pain management. He reports that his knee pain has been present for more than a month and a half but has significantly worsened in the past month and a half. He used to be able to walk at the mall, but now he needs to sit down after walking short distances due to the pain. He lives alone at home. PAST SURGICAL HISTORY: Right knee surgery (1985) Hernia surgery (date not specified) Personal History Occupation: RETIRED Red flag PMH: none BMI Counceling provided: Yes Pain Pain level (0-10): 6 Pain location: inside (medial) Pain quality: aching, burning and tingling Pain timing: increases with activity and stairs Associated signs & symptoms: weakness Ambulatory data Ambulatory device: none Walking distance (minutes): 5 Treatments Number of previous injections: 0 Improvement with previous injections: No Number of Physical Therapy sessions: 0 Improvement with PT: No Improvement with NSAIDS: no Review of Systems Review of Systems: All systems negative unless otherwise noted in HPI.
[2025-03-12 14:19] VITALS: BP 120/78; PULSE 73; RESP 18; TEMP 36.5; O2SAT 98; BMI 40.1
== END 2025-03-12 14:55 | disposition home or self-care (01) ==
LOC: HODSRG 13:54
PROVIDERS: PCP Nurse Practitioner Family; Referring Provider Nurse Practitioner Family; Supervising Provider Orthopaedic Surgery Adult Reconstructive Orthopaedic Surgery; Visit Provider Orthopaedic Surgery Adult Reconstructive Orthopaedic Surgery
DX: M25.562 Pain in left knee (principal); M25.561 Pain in right knee; S89.92XD Unspecified injury of left lower leg, subsequent encounter; S89.91XD Unspecified injury of right lower leg, subsequent encounter; W01.0XXD Fall on same level from slipping, tripping and stumbling without subsequent striking against object, subsequent encounter; M17.11 Unilateral primary osteoarthritis, right knee; I10 Essential (primary) hypertension; E66.9 Obesity, unspecified; Z68.39 Body mass index [BMI] 39.0-39.9, adult
CPT/HCPCS: 99213; G0463

== ENCOUNTER → 2025-03-26 | Outpatient (CLI) | payer MEDICARE, MEDICAID, SELFPAY ==
--- NOTE | 2025-03-26 10:49 | XR_ITS ---
EXAMINATION: PA chest single view TECHNIQUE: Upright PA chest single view Date and time: March 26, 2025, 1102 hours INDICATIONS: Preop FINDINGS: Normal heart size No pneumonia or pulmonary edema Significant osteopenia IMPRESSION: No active disease
[2025-03-26 12:03] LABS: Basophils # (Auto) 0.0 Thou/mm3 (0.0-0.2); Basophils % (Auto) 0 % (0-2.5); Eosinophils # (Auto) 0.3 Thou/mm3 (0.0-0.5); Eosinophils % (Auto) 4 % (0-10); Hematocrit 41.6 % (41.0-53.0); Hemoglobin 14.1 g/dL (13.5-16.0); Immature Granulocytes Auto 0.02 Thou/mm3 (0.00-0.00); Lymphocytes # (Auto) 3.1 Thou/mm3 (1.0-4.8); Lymphocytes % (Auto) 43 % (10-50); Mean Corpuscular HGB Conc 33.9 g/dl (31.0-37.0); Mean Corpuscular Hemoglobin 30.8 pg (25.0-35.0); Mean Corpuscular Volume 91 fL (80-100); Monocytes # (Auto) 0.5 Thou/mm3 (0.0-0.8); Monocytes % (Auto) 7 % (0-12); Neutrophils # (Auto) 3.3 Thou/mm3 (1.8-7.7); Neutrophils % (Auto) 45 % (37-80); Nucleated Red Blood Cell # 0.00 Thou/mm3 (0.00-0.00); Nucleated Red Blood Cell % 0 /100 WBC (0); Platelet Count 230 Thou/mm3 (140-440); RDW Standard Deviation 41.0 fL (35.1-43.9); Red Blood Count 4.58 Miln/mm3 (4.50-5.90); White Blood Count 7.2 Thou/mm3 (3.8-10.6)
[2025-03-26 12:09] LABS: INR 1.0 (0.9-1.3); Partial Thromboplastin Time 25.1 Seconds (22.0-36.0); Prothrombin Time 10.3 Seconds (9.0-12.2)
[2025-03-26 12:14] LABS: Glucose Estimated Average 140 mg/dL (80-131); Hemoglobin A1C 6.5 % Hgb (4.8-6.0)
[2025-03-26 12:22] LABS: Alanine Aminotransferase 57 U/L (10-49); Albumin, Serum 4.8 gm/dL (3.4-4.8); Albumin/Globulin Ratio 1.5 (1.2-2.2); Alkaline Phosphatase 82 U/L (46-116); Anion Gap 8 (7-16); Aspartate Amino Transferase 45 U/L (0-34); BUN/Creatinine Ratio 20 Ratio (12-20); Bilirubin,Total 0.7 mg/dL (0.3-1.2); Blood Urea Nitrogen 16 mg/dL (9-23); Calcium 10.0 mg/dL (8.3-10.6); Calcium (Corrected) 10.0 mg/dL (8.5-10.1); Carbon Dioxide 29.0 mMol/L (20.0-31.0); Chloride 102 mMol/L (98-107); Creatinine (Component) 0.8 mg/dL (0.6-1.3); Globulin 3.2 gm/dL (2.3-3.5); Glucose 117 mg/dL (74-106); Osmolality,Calculated 279 (275-295); Potassium 4.6 mMol/L (3.4-5.1); Sodium 139 mMol/L (136-145); Total Protein 8.0 gm/dL (5.7-8.2); eGFR > 60 See Note
== END | disposition home or self-care (01) ==
PROVIDERS: Visit Provider Radiology Diagnostic Radiology
DX: Z01.818 Encounter for other preprocedural examination (principal); M25.561 Pain in right knee; Z79.899 Other long term (current) drug therapy; I10 Essential (primary) hypertension
CPT/HCPCS: 36415; 71045; 80053; 83036; 85025; 85610; 85730